=== PATIENT | male | born 1950 | race Two or more races ===

== ENCOUNTER 2016-05-11 11:57 | Emergency (ER) | payer MEDICAID ==
[~2016-05-11] VITALS: Ht 172.7 cm; Wt 106.6 kg
[~2016-05-11 11:57] MED LIST: ATEN100T; CITA-30; FLUT50SP13; NITR0.4S31; SIMV-13
[2016-05-11 12:22] LABS: Basophils # (auto) 0 uL; Basophils % (auto) 0.3 % (0.0-2.0); DEFINITIVE VIEW TRANSMISSION; Eosinophils # (auto) 0.2 uL; Eosinophils % (auto) 2.6 % (0.0-7.0); Hematocrit 52.1 % (41.0-53.0); Hemoglobin 16.7 g/dL (13.5-17.5); Lymphocytes # (auto) 2.1 uL; Lymphocytes % (auto) 23.1 % (10.0-50.0); Mean Corpuscular Hgb Conc. 32.1 g/dL (32.0-36.0); Mean Platelet Volume 10.1 fL (7.4-10.4); Monocytes % (auto) 10.8 % (0.0-12.0); Neutrophils # (auto) 5.7 uL; Neutrophils % (auto) 63.2 % (37.0-80.0); Platelet Count (auto) 160 10^3/uL (140-450); Red Cell Distribution Width 15.4 % (11.6-16.0)
[2016-05-11 12:47] LABS: Albumin 3.7 g/dL (3.4-5.0); BUN/Creatinine Ratio 11.4; Bilirubin, Total 0.6 mg/dL (0.2-1.0); Calcium 8.5 mg/dL (8.5-10.1); Magnesium 2.1 mg/dL (1.6-2.6); Potassium 3.8 mmol/L (3.5-5.1); Total Protein 7.4 g/dL (6.4-8.2)
[2016-05-11 18:18] VITALS: BP 154/89
== END 2016-05-11 18:22 | disposition home or self-care (01) ==
LOC: ER 12:02
DX: R07.89 Other chest pain (principal); E11.9 Type 2 diabetes mellitus without complications; E78.5 Hyperlipidemia, unspecified; I10 Essential (primary) hypertension; I25.10 Atherosclerotic heart disease of native coronary artery without angina pectoris; Z98.61 Coronary angioplasty status; Z79.899 Other long term (current) drug therapy
CPT/HCPCS: 36415; 80053; 83735; 84484; 85025; 93005; 94761

== ENCOUNTER → 2016-08-23 | Emergency (ER) | payer MEDICAID | END | disposition left against medical advice (07) | LOC: ER 21:12 | DX: R39.89 Other symptoms and signs involving the genitourinary system (principal); Z53.21 Procedure and treatment not carried out due to patient leaving prior to being seen by health care provider ==

== ENCOUNTER → 2019-08-24 | Emergency (ER) | payer MEDICAID, OTHER ==
[~2019-08-24] VITALS: Ht 172.7 cm; Wt 106.6 kg
[~2019-08-24] MED LIST changes: +HYDROmorphone HCL 2 MG/ML VL IV ONE; +KETOROLAC TROMETH 15 mg/ml 1ML VL IV ONE; +KETOROLAC TROMETH 30 MG/ML 1ML VIAL ONE; +ONDANSETRON HCL 4 MG/2 ML VIAL IV ONE; +SODIUM CHLORIDE 0.9% 1,000 ML IV ONE
[2019-08-24 20:08] VITALS: BP 162/80
[2019-08-24 20:17] LABS: Basophils # (auto) 0.1 10 ^3/uL (0-0.2); Basophils % (auto) 0.6 % (0.0-2.0); Eosinophils # (auto) 0.3 10 ^3/uL (0-0.8); Monocytes # (auto) 1.3 10 ^3/uL (0-1.3); Nucleated Red Blood Cells % 0.1 %
[2019-08-24 20:19] LABS: Eosinophils % (auto) 2.4 % (0.0-7.0); Hematocrit 51.3 % (41.0-53.0); Lymphocytes # (auto) 2.5 10 ^3/uL (0.4-5.4); Lymphocytes % (auto) 21.3 % (10.0-50.0); Mean Corpuscular Hemoglobin 26.7 pg (28.0-32.0); Mean Corpuscular Hgb Conc. 33.1 g/dL (32.0-36.0); Mean Corpuscular Volume 80.8 fL (80.0-100.0); Monocytes % (auto) 10.8 % (0.0-12.0); Neutrophils # (auto) 7.7 10 ^3/uL (1.6-8.6); Neutrophils % (auto) 64.9 % (37.0-80.0); Platelet Count (auto) 153 10^3/uL (140-450); Red Blood Cells 6.35 10^6/uL (4.5-5.90); Red Cell Distribution Width 14.8 % (11.8-14.3); White Blood Cell 11.9 10^3/uL (4.4-10.8)
[2019-08-24 20:30] LABS: Albumin 4.2 g/dL (3.4-5.0); BUN/Creatinine Ratio 13.7; Calcium 8.9 mg/dL (8.5-10.1); Potassium 3.4 mmol/L (3.5-5.1)
[2019-08-24 20:33] LABS: Bilirubin, Total 0.6 mg/dL (0.2-1.0); Total Protein 7.7 g/dL (6.4-8.2)
== END | disposition home or self-care (01) ==
LOC: ER 19:03
DX: N20.0 Calculus of kidney (principal); I25.10 Atherosclerotic heart disease of native coronary artery without angina pectoris; E11.9 Type 2 diabetes mellitus without complications; E78.5 Hyperlipidemia, unspecified; I10 Essential (primary) hypertension
CPT/HCPCS: 36415; 71045; 74176; 80053; 82150; 83690; 85025; 93005; 96374; 96375; 99285; J1170; J1885; J2405

== ENCOUNTER 2019-08-29 12:15 | Inpatient (IN) | payer OTHER ==
[~2019-08-29] VITALS: Ht 172.7 cm; Wt 108.3 kg
[~2019-08-29 12:15] MED LIST changes: -HYDROmorphone HCL 2 MG/ML VL IV ONE; -KETOROLAC TROMETH 15 mg/ml 1ML VL IV ONE; -KETOROLAC TROMETH 30 MG/ML 1ML VIAL ONE; -ONDANSETRON HCL 4 MG/2 ML VIAL IV ONE; -SODIUM CHLORIDE 0.9% 1,000 ML IV ONE
[2019-08-29] MEDS ORDERED: SODIUM CHLORIDE 0.9% 1,000 ML IV ONE ×2 (12:56)
[2019-08-29 13:24] LABS: Hematocrit 48.5 % (41.0-53.0)
[2019-08-29 13:26] LABS: Hemoglobin 15.8 g/dL (13.5-17.5); Mean Corpuscular Hemoglobin 26.3 pg (28.0-32.0); Mean Corpuscular Hgb Conc. 32.7 g/dL (32.0-36.0); Mean Corpuscular Volume 80.4 fL (80.0-100.0); Platelet Count (auto) 154 10^3/uL (140-450); Red Blood Cells 6.03 10^6/uL (4.5-5.90); Red Cell Distribution Width 14.6 % (11.8-14.3); White Blood Cell 10.2 10^3/uL (4.4-10.8)
[2019-08-29] MEDS ORDERED: TAMSULOSIN HYDROCHLORIDE 0.4 MG CAP PO ONE (13:45)
[2019-08-29] MEDS ORDERED: MORPHINE SULF INJ 2 MG/ML SYRINGE 1ML IV ONE (13:45)
[2019-08-29] MEDS ORDERED: ONDANSETRON HCL 4 MG/2 ML VIAL IV ONE (13:45)
[2019-08-29 13:46] LABS: Albumin 3.1 g/dL (3.4-5.0); Anion Gap 9 (5-15); Basophils % (manual) 0 (0.0-2.0); Blast Cells 0; Blood Urea Nitrogen 18 mg/dL (7-18); Calcium 8.5 mg/dL (8.5-10.1); Carbon Dioxide 24 mmol/L (21-32); Chloride 104 mmol/L (98-107); Glucose 155 mg/dL (74-106); Potassium 3.5 mmol/L (3.5-5.1); Promyelocytes % 0; Reactive Lymphocytes 0; Sodium 137 mmol/L (136-145)
[2019-08-29 13:47] LABS: Urine Bacteria NONE SEEN /hpf (None Seen); Urine Blood TRACE /uL (Negative); Urine Mucus FEW (None Seen); Urine Specific Gravity 1.024 (1.001-1.035); Urine WBC 2 /hpf (0 - 3)
[2019-08-29 13:52] LABS: Alanine Aminotransferase 278 U/L (16-61); Alkaline Phosphatase 119 U/L (45-117); Aspartate Aminotransferase 139 U/L (15-37); BUN/Creatinine Ratio 19.6; Bilirubin, Total 2.1 mg/dL (0.2-1.0); GFR African American 106 mL/min; GFR Non-African American 87 mL/min; Total Protein 7.6 g/dL (6.4-8.2)
[2019-08-29 13:53] LABS: Band Neutrophils % (manual) 4; Eosinophils % (manual) 1 (0-7); Lymphocytes % (manual) 8 (10.0-50.0); Metamyelocytes % 1; Monocytes % (manual) 9 (0-12); Myelocytes % 1
[2019-08-29] MEDS ORDERED: SODIUM CHLORIDE 0.9% 1,000 ML IV SCH ×3 (14:15→23:15)
[2019-08-29] MEDS ORDERED: NITROGLYCERIN 0.4 MG SL TAB SL PRN (14:15)
[2019-08-29] MEDS ORDERED: DEXTROSE (50%) 50ML SYRG IV PRN (14:15)
[2019-08-29] MEDS ORDERED: HYDROcodone-ACET 5/325MG TAB PO PRN (14:15)
[2019-08-29] MEDS ORDERED: MORPHINE SULF INJ 2 MG/ML SYRINGE 1ML IV PRN (14:15)
[2019-08-29] MEDS ORDERED: PIPERACILLIN-TAZOB 3.375GM 100 ML IV ONE (14:30)
[2019-08-29 14:41] LABS: Amylase 58 U/L (25-115); Lipase 443 U/L (73-393)
[2019-08-29 14:51] LABS: INR 1.22 (0.9-1.15)
--- NOTE | 2019-08-29 15:28 | NUR ---
MS admit from ER ANDREW,FREDA admitted to tele/MS after SBAR received from ER nurse, Marisela. Patient oriented to Kimberly elizabeth RN, unit, room, bed, and unit policies regarding patient care and visiting hours. Patient weighed by bedscale and encouraged to call if they need something. All questions and concerns addressed, patient verbalized understanding. Addendum: 08/29/19 at 1541 by Kimberly Pryor RN This is a MS patient.
[2019-08-29 15:51] VITALS: BP 155/79
[2019-08-29 16:00] VITALS: BP 155/79
[2019-08-29] MEDS: InsuLIN REG 1unit/0.01ml Soln (100units/ml) SC SCH ×2 (17:00→21:45)
[2019-08-29] MEDS: ACCU-CHEK COMFORT CURVE STRIP VI SCH ×2 (17:07→21:23)
[2019-08-29] MEDS: ONDANSETRON HCL 4 MG/2 ML VIAL IV PRN (18:21)
--- NOTE | 2019-08-29 20:00 | NUR ---
Consent not signed need to explain by the surgeon still.
--- NOTE | 2019-08-29 20:00 | NUR ---
Opening Shift Note Assumed care of patient, awake and alert. No S/S of distress/SOB or pain. Instructed on POC and to call for assist PRN, will continue to monitor for changes Q1hr and PRN.
[2019-08-29] MEDS ORDERED: GLIP2.5T28 PO (20:31)
[2019-08-29] MEDS ORDERED: ATOR10TA52 PO (20:31)
[2019-08-29] MEDS ORDERED: HYDR25TA4 PO (20:31)
[2019-08-29] MEDS ORDERED: LISI-646 PO (20:31)
[2019-08-29] MEDS ORDERED: ATEN100T PO (20:31)
[2019-08-29] MEDS ORDERED: LORA0.5T12 PO (20:31)
[2019-08-29] MEDS ORDERED: LEVO750T64 PO (20:31)
[2019-08-29 21:00] VITALS: BP 155/79
--- NOTE | 2019-08-29 22:07 | NUR ---
Respiratory note: PT SEEN FOR CPAP ORDER AT THIS TIME. PT STATED THAT HE WEARS ONE AT HOME, BUT HE IS CURRENTLY HAVING BAD HICCUPS AND IS ALSO FEELING NAUSEOUS AT THIS TIME. DID NOT PLACE THE PT ON CPAP. MACHINE LEFT IN THE ROOM SO THAT PT CAN TRY AND WEAR IT TOMORROW NIGHT.
--- NOTE | 2019-08-29 23:39 | NUR ---
Called the nursing operation shift supervisor to override the i.v.f. of N.S.0.9% with 20meq pot. per liter of N.S.as per outside pharmacy.
[2019-08-29] MEDS ORDERED: SOD CHL 0.9%/ KCL 20MEQ 1,000 ML IV ONE (23:47)
[2019-08-29] MEDS: POTASSIUM CHLORIDE 20 MEQ in SODIUM CHLORIDE 0.9% 1,000 ML IV SCH (23:48)
[2019-08-30] MEDS: ONDANSETRON HCL 4 MG/2 ML VIAL IV PRN ×3 (00:51→22:00)
[2019-08-30 03:40] VITALS: BP 155/79
[2019-08-30 04:30] VITALS: BP 153/76
[2019-08-30 05:29] LABS: Hematocrit 44.2 % (41.0-53.0); Hemoglobin 14.6 g/dL (13.5-17.5); Mean Corpuscular Hemoglobin 26.5 pg (28.0-32.0); Mean Corpuscular Hgb Conc. 33.1 g/dL (32.0-36.0); Mean Corpuscular Volume 79.9 fL (80.0-100.0); Platelet Count (auto) 157 10^3/uL (140-450); Red Blood Cells 5.53 10^6/uL (4.5-5.90); Red Cell Distribution Width 15.3 % (11.8-14.3); White Blood Cell 11.2 10^3/uL (4.4-10.8)
[2019-08-30 05:44] LABS: Potassium 4.1 mmol/L (3.5-5.1)
[2019-08-30 05:51] LABS: Albumin 2.9 g/dL (3.4-5.0); BUN/Creatinine Ratio 18.9; Bilirubin, Total 1.7 mg/dL (0.2-1.0); Calcium 7.8 mg/dL (8.5-10.1); Total Protein 6.8 g/dL (6.4-8.2)
[2019-08-30 06:00] LABS: Band Neutrophils % (manual) 0; Basophils % (manual) 0 (0.0-2.0); Blast Cells 0; Myelocytes % 0; Promyelocytes % 0; Reactive Lymphocytes 0
--- NOTE | 2019-08-30 06:00 | NUR ---
Respiratory note: WALKED IN ROOM, PATIENT WAS NOT WEARING CPAP. NO RESP DISTRESS NOTED, HR 58, RR 18, SPO2 96% ON ROOM AIR. PATIENT PLANNING ON WEARING CPAP TONIGHT.
[2019-08-30] MEDS: InsuLIN REG 1unit/0.01ml Soln (100units/ml) SC SCH ×4 (06:14→18:07)
[2019-08-30] MEDS: ACCU-CHEK COMFORT CURVE STRIP VI SCH ×4 (06:15→21:59)
[2019-08-30 07:06] LABS: Eosinophils % (manual) 4 (0-7); Lymphocytes % (manual) 13 (10.0-50.0); Metamyelocytes % 1; Monocytes % (manual) 11 (0-12)
--- NOTE | 2019-08-30 07:15 | NUR ---
Report given to Kristin Velez, patient is resting no respiratory distress.
--- NOTE | 2019-08-30 07:47 | NUR ---
OPENING SHIFT NOTE: PATIENT RESTING IN BED, A/OX4. RESPIRATIONS EVEN AND UNLABORED. PATIENT UPDATED ON PLAN OF CARE, NPO FOR SURGERY TODAY WITH MD HENDERSON. NOC ELIZABETH HANEY TOOK POM TO PHARMACY WRISTBAND APPLIED TO PATIENT. BED IN LOWEST LOCKED POSITION, CALL LIGHT WITHIN REACH WILL CONTINUE TO MONITOR.
[2019-08-30 09:00] VITALS: BP 161/84
[2019-08-30] MEDS: LISINOPRIL 20 MG TAB PO SCH (09:14)
[2019-08-30] MEDS: POTASSIUM CHLORIDE 20 MEQ in SODIUM CHLORIDE 0.9% 1,000 ML IV SCH (10:17)
[2019-08-30] MEDS ORDERED: MORPHINE SULF INJ 2 MG/ML SYRINGE 1ML ONE (11:03)
[2019-08-30] MEDS ORDERED: MORPHINE SULF INJ 2 MG/ML SYRINGE 1ML IM ONE (11:30)
[2019-08-30] MEDS ORDERED: ceFAZolin 1GM/50ML 50 ML IV ONE (13:28)
--- NOTE | 2019-08-30 13:53 | NUR ---
PATIENT TAKEN DOWN TO OR.
[2019-08-30] MEDS ORDERED: SUCCINYLCHOLINE CHLORIDE 20 MG/ML 10ML VIAL IV ONE (15:04)
[2019-08-30] MEDS ORDERED: GLYCOPYRROLATE 0.2 MG/ML 1ML VIAL IV ONE (15:05)
[2019-08-30] MEDS ORDERED: NEOSTIGMINE 1 MG/ML INJ (10mg/10ML VIAL) IV ONE (15:05)
[2019-08-30] MEDS ORDERED: MEPERIDINE HCL (25 MG/ML) 1ML VIAL ONE (15:13)
[2019-08-30] MEDS ORDERED: fentaNYL CITRATE 100 MCG/2 ML VL ONE (15:13)
[2019-08-30] MEDS ORDERED: MIDAZOLAM HCL 1MG/1ML-2 ML VIAL ONE (15:14)
[2019-08-30] MEDS ORDERED: ETOMIDATE (2MG/ML) 20ML VIAL IV ONE (15:40)
[2019-08-30] MEDS ORDERED: DexAMETHasone SOD PHOS 10MG/1ML VIAL INJ ONE (15:40)
[2019-08-30] MEDS: POVIDONE IODINE 10 % TOPICAL OINT 30GM TOP ONE ×2 (16:13→17:56)
[2019-08-30] MEDS ORDERED: ePHEDrine SULFATE 50 MG/ML AMP IV PRN (16:30)
[2019-08-30] MEDS ORDERED: LABETALOL HCL 5 MG/ML 4ML SYRINGE IV PRN (16:30)
[2019-08-30] MEDS ORDERED: MORPHINE SULFATE 4 MG/ML SYR/VIAL IV PRN (16:30)
[2019-08-30] MEDS ORDERED: MIDAZOLAM HCL 1MG/1ML-2 ML VIAL IV PRN (16:30)
[2019-08-30] MEDS ORDERED: ONDANSETRON HCL 4 MG/2 ML VIAL IV PRN (16:30)
[2019-08-30] MEDS ORDERED: HYDROmorphone HCL 2 MG/ML VL IV PRN (16:30)
--- NOTE | 2019-08-30 17:30 | NUR ---
PATIENT BACK FROM OR VS STABLE DRESSINGS TO MID ABDOMEN CDI.
[2019-08-30] MEDS ORDERED: ASPI-498 OR (18:23)
[2019-08-30] MEDS ORDERED: MULTTAB61 PO (18:24)
[2019-08-30] MEDS ORDERED: ACET-1304 PO (18:25)
--- NOTE | 2019-08-30 19:20 | NUR ---
Opening Shift Note Assumed care of patient. Patient is awake and alert. No S/S of distress/SOB or pain. Instructed on POC and to call for assist PRN, will continue to monitor for changes Q1hr and PRN. Bed locked in lowest position and bed rails up x2. SCDS's in place on intermittent on bilateral lower extremities. Call light within reach.
--- NOTE | 2019-08-30 19:22 | NUR ---
Care endorsed to Eric JOHNSON.
[2019-08-30] MEDS: SOD CHL 0.9%/ KCL 20MEQ 1,000 ML IV SCH (19:45)
--- NOTE | 2019-08-30 21:11 | NUR ---
Paged Hospitalist for elevated B/P and temperature. Awaiting call back. Will continue to monitor for changes.
--- NOTE | 2019-08-30 21:40 | NUR ---
Hospitalist called back and new orders given. New orders will be carried out. Will continue to monitor for changes Q1H and PRN.
[2019-08-30] MEDS ORDERED: ACETAMINOPHEN 325 MG TAB PO PRN (21:45)
[2019-08-30] MEDS ORDERED: HCTZ 25 MG TAB PO ONE (21:45)
[2019-08-30 22:00] VITALS: BP 155/80
[2019-08-30] MEDS: MORPHINE SULF INJ 2 MG/ML SYRINGE 1ML IV PRN (22:00)
[2019-08-31 05:00] VITALS: BP 155/74
[2019-08-31] MEDS: SOD CHL 0.9%/ KCL 20MEQ 1,000 ML IV SCH ×2 (05:46→15:45)
[2019-08-31] MEDS: ACCU-CHEK COMFORT CURVE STRIP VI SCH ×2 (06:49→12:03)
[2019-08-31] MEDS: InsuLIN REG 1unit/0.01ml Soln (100units/ml) SC SCH ×2 (06:50→12:12)
--- NOTE | 2019-08-31 07:12 | NUR ---
Respiratory note: PT FOUND OFF CPAP UNIT. ASSESSED PT HR 72, RR 18, POX 94% ON RA, BS ARE CLR. NO SOB OR DISTRESS NOTED.
--- NOTE | 2019-08-31 07:14 | NUR ---
130ml of sanguinous drainage from VINITA drain and 900ml of urine output for entire shift. Will endorse to day shift, ELIZABETH.
--- NOTE | 2019-08-31 08:15 | NUR ---
OPENING SHIFT NOTE: PATIENT AWAKE IN BED. A.OX4 RESPIRATIONS EVEN AND UNLABORED. PATIENT REQUESTING TO GET OUT OF BED. THIS RN ASSISTED. PATIENT ABLE TO AMBULATE WITH STEADY GAIT. BOWEL SOUNDS ACTIVE. PATIENT TOLERATING CLEAR LIQUID. PATIENT STILL REPORTING HICCUPS AND REQUESTING ANTACID. WILL INFORM MD. PATIENT BACK IN BED. RESTING COMFORTABLY, CALL LIGHT WITHIN REACH, WILL CONTINUE TO MONITOR.
[2019-08-31 08:29] VITALS: BP 153/81
--- NOTE | 2019-08-31 08:29 | NUR ---
CALL FROM MD Thom LEHMAN: ORDERS RECEIVED. PATIENT TO RESUME HOME MEDS, AND START ON PPI/STOOL SOFTENER. ADVANCE DIET TOLERATED, AND TO NOTIFY MD IF ANY D/C UPDATES ARE GIVEN FROM SURGEON DR. HENDERSON
[2019-08-31] MEDS ORDERED: LORazepam 0.5 MG TAB PO PRN (08:30)
[2019-08-31] MEDS ORDERED: SENNA 8.6 MG TAB PO ONE (08:30)
[2019-08-31] MEDS: LISINOPRIL 20 MG TAB PO SCH (09:49)
[2019-08-31] MEDS: MORPHINE SULF INJ 2 MG/ML SYRINGE 1ML IV PRN (09:53)
[2019-08-31] MEDS ORDERED: ASPirin 81 mg TAB PO SCH (10:00)
[2019-08-31] MEDS ORDERED: HCTZ 25 MG TAB PO SCH (10:00)
[2019-08-31] MEDS ORDERED: PANTOPRAZOLE 40 MG TAB PO SCH (10:00)
[2019-08-31] MEDS ORDERED: ATENOLOL 50 MG TAB PO SCH (10:00)
[2019-08-31] MEDS ORDERED: ALUM & MAG HYDROX-SIMETH LIQ(MAALOX) 30 ML PO ONE (13:15)
[2019-08-31 13:27] VITALS: BP 112/76
[2019-08-31 15:54] VITALS: BP 153/81
--- NOTE | 2019-08-31 17:11 | NUR ---
DISCHARGE: PATIENT DISCHARGED. ALL EDUCATION MATERIALS GIVEN TO THE PATIENT. EDUCATED ON VINITA DRAIN AND INCISIONAL CARE. PATIENT VERBALIZED UNDERSTANDING. IV DISCONTINUED, MANUAL PRESSURE APPLIED. PATIENT TAKEN DOWN TO PRIVATE AUTO WITHOUT INCIDENCE AND WITH ALL BELONGINGS.
[2019-08-31] MEDS ORDERED: ATORVASTATIN 20 MG TAB PO SCH (22:00)
== END 2019-08-31 17:40 | disposition home or self-care (01) | DRG 419 ==
LOC: ER 12:15 → OVERFLOW 12:16 → CENTRAL 15:40
PROVIDERS: ADMIT Internal Medicine; ATTEND Internal Medicine
PROC: 0FT44ZZ Resection of Gallbladder, Percutaneous Endoscopic Approach (ICD-10-PCS; principal; 2019-08-30 15:15)
DX: K80.00 Calculus of gallbladder with acute cholecystitis without obstruction (principal); K82.A1 Gangrene of gallbladder in cholecystitis; N20.0 Calculus of kidney; E86.0 Dehydration; I10 Essential (primary) hypertension; E11.9 Type 2 diabetes mellitus without complications; E66.01 Morbid (severe) obesity due to excess calories; I25.10 Atherosclerotic heart disease of native coronary artery without angina pectoris; Z87.442 Personal history of urinary calculi
CPT/HCPCS: 36415; 71046; 71250; 74176; 74181; 76705; 78226; 80053; 81001; 82150; 82247; 82962; 83605; 83690; 83880; 84484; 85007; 85027; 85610; 85730; 86850; 86900; 86901; 87040; 87081; 94660; 96361; 96365; 96375; G0378; J0330; J0690; J1100; J1815; J2250; J2405; J2543; J3480

== ENCOUNTER 2021-02-28 08:48 | Emergency (ER) | payer OTHER ==
[~2021-02-28] VITALS: Ht 172.7 cm; Wt 104.3 kg
[~2021-02-28 08:48] MED LIST changes: +ACET-1304 PO; +ASPI-498 OR; -ATEN100T; +ATEN100T PO; +ATOR10TA52 PO; -CITA-30; -FLUT50SP13; +GLIP2.5T28 PO; +HYDR25TA4 PO; +LISI20TA28 PO; +LORA0.5T20 PO; +MULT-1018 PO; -NITR0.4S31; -SIMV-13
[2021-02-28] MEDS ORDERED: FLUORESCEIN SOD OPTH TEST STRIP OP ONE (09:15)
[2021-02-28 09:49] VITALS: BP 141/85
== END 2021-02-28 10:04 | disposition home or self-care (01) ==
LOC: ER 08:48
DX: T15.02XA Foreign body in cornea, left eye, initial encounter (principal); I10 Essential (primary) hypertension; I25.10 Atherosclerotic heart disease of native coronary artery without angina pectoris; E11.9 Type 2 diabetes mellitus without complications; E78.5 Hyperlipidemia, unspecified; Z79.82 Long term (current) use of aspirin; Z79.899 Other long term (current) drug therapy; X58.XXXA Exposure to other specified factors, initial encounter; Y93.89 Activity, other specified; Y92.89 Other specified places as the place of occurrence of the external cause; Y99.8 Other external cause status
CPT/HCPCS: 65222

== ENCOUNTER 2022-05-26 12:16 | Emergency (ER) | payer OTHER ==
[~2022-05-26] VITALS: Ht 172.7 cm; Wt 104.2 kg
[2022-05-26] MEDS ORDERED: ASPirin 325 MG TAB PO ONE (12:30)
[2022-05-26 13:08] LABS: Basophils # (auto) 0.1 10 ^3/uL (0-0.2); Basophils % (auto) 0.6 % (0.0-2.0); Eosinophils # (auto) 0.2 10 ^3/uL (0-0.8); Eosinophils % (auto) 1.9 % (0.0-7.0); Hematocrit 51.4 % (41.0-53.0); Hemoglobin 16.6 g/dL (13.5-17.5); Lymphocytes # (auto) 2.1 10 ^3/uL (0.4-5.4); Lymphocytes % (auto) 23.7 % (10.0-50.0); Mean Corpuscular Hemoglobin 26.3 pg (28.0-32.0); Mean Corpuscular Hgb Conc. 32.3 g/dL (32.0-36.0); Mean Corpuscular Volume 81.5 fL (80.0-100.0); Monocytes # (auto) 0.9 10 ^3/uL (0-1.3); Monocytes % (auto) 10.1 % (0.0-12.0); Neutrophils # (auto) 5.6 10 ^3/uL (1.6-8.6); Neutrophils % (auto) 63.7 % (37.0-80.0); Nucleated Red Blood Cells % 0.1 %; Red Blood Cells 6.31 10^6/uL (4.5-5.90); Red Cell Distribution Width 15.3 % (11.8-14.3); White Blood Cell 8.8 10^3/uL (4.4-10.8)
[2022-05-26 13:16] LABS: BUN/Creatinine Ratio 14.1; Calcium 8.9 mg/dL (8.5-10.1); Potassium 4.1 mmol/L (3.5-5.1)
[2022-05-26 13:18] LABS: Bilirubin, Total 0.7 mg/dL (0.2-1.0); Total Protein 6.9 g/dL (6.4-8.2)
[2022-05-26 16:05] VITALS: BP 155/77
== END 2022-05-26 16:07 | disposition home or self-care (01) ==
LOC: ER 12:16
DX: R07.89 Other chest pain (principal); F41.9 Anxiety disorder, unspecified; I10 Essential (primary) hypertension; I25.10 Atherosclerotic heart disease of native coronary artery without angina pectoris; E11.9 Type 2 diabetes mellitus without complications; E78.5 Hyperlipidemia, unspecified; Z79.82 Long term (current) use of aspirin; Z79.899 Other long term (current) drug therapy
CPT/HCPCS: 36415; 80053; 84484; 85025; 93005

== ENCOUNTER 2024-01-02 12:38 | Emergency (ER) | payer OTHER ==
[~2024-01-02] VITALS: Ht 172.7 cm; Wt 94.0 kg
[~2024-01-02 12:38] MED LIST changes: -GLIP2.5T28 PO; +GLIP2.5T9 PO; -LISI20TA28 PO; +LISI20TA56 PO; +LORA-1121 PO; -LORA0.5T20 PO
[2024-01-02 13:47] LABS: Basophils # (auto) 0 10 ^3/uL (0-0.2); Basophils % (auto) 0.5 % (0.0-2.0); Eosinophils # (auto) 0.2 10 ^3/uL (0-0.8); Lymphocytes # (auto) 2.1 10 ^3/uL (0.4-5.4); Monocytes # (auto) 0.9 10 ^3/uL (0-1.3); Neutrophils # (auto) 5.6 10 ^3/uL (1.6-8.6)
[2024-01-02 13:52] LABS: Eosinophils % (auto) 1.9 % (0.0-7.0); Hematocrit 49.5 % (41.0-53.0); Hemoglobin 16.6 g/dL (13.5-17.5); Lymphocytes % (auto) 23.7 % (10.0-50.0); Mean Corpuscular Hemoglobin 27.6 pg (28.0-32.0); Mean Corpuscular Hgb Conc. 33.4 g/dL (32.0-36.0); Mean Corpuscular Volume 82.7 fL (80.0-100.0); Monocytes % (auto) 10.2 % (0.0-12.0); Neutrophils % (auto) 63.7 % (37.0-80.0); Nucleated Red Blood Cells % 0.2 %; Platelet Count (auto) 163 10^3/uL (140-450); Red Blood Cells 5.99 10^6/uL (4.5-5.90); Red Cell Distribution Width 15.5 % (11.8-14.3); White Blood Cell 8.7 10^3/uL (4.4-10.8)
[2024-01-02 13:53] LABS: Anion Gap 8 (5-15); Carbon Dioxide 24 mmol/L (20-30); Chloride 109 mmol/L (98-107); Potassium 3.9 mmol/L (3.5-5.1); Sodium 141 mmol/L (136-145)
[2024-01-02 13:54] LABS: Calcium 9.8 mg/dL (8.7-10.4)
[2024-01-02 13:58] LABS: Glucose 104 mg/dL (74-106)
[2024-01-02 13:59] LABS: BUN/Creatinine Ratio 11.3 (10.0-20.0); Blood Urea Nitrogen 9 mg/dL (9-23)
[2024-01-02] MEDS: NITROGLYCERIN 0.4 MG SL TAB SL ONE (16:31)
[2024-01-02] MEDS: ONDANSETRON HCL 4 MG/2 ML VIAL IM ONE (16:35)
[2024-01-02] MEDS: MORPHINE SULFATE INJ 2 MG/ml SYRG IM ONE (16:35)
[2024-01-02] MEDS: ASPirin 325 MG TAB PO ONE (16:35)
[2024-01-02 16:36] VITALS: BP 142/67; TEMP 97.9
[2024-01-02 16:37] VITALS: PULSE 85; RESP 14; O2SAT 95
[2024-01-02] MEDS: ASPirin 81 mg TAB PO ONE (16:56)
[2024-01-02] MEDS ORDERED: BUSP5TAB51 PO (17:46)
== END 2024-01-02 18:02 | disposition home or self-care (01) ==
LOC: ER 12:38
DX: R07.89 Other chest pain (principal); I10 Essential (primary) hypertension; I25.10 Atherosclerotic heart disease of native coronary artery without angina pectoris; E11.9 Type 2 diabetes mellitus without complications; E78.5 Hyperlipidemia, unspecified; Z98.890 Other specified postprocedural states; Z79.899 Other long term (current) drug therapy
CPT/HCPCS: 36415; 80048; 84484; 85025; 93005

== ENCOUNTER 2024-05-24 08:34 | Emergency (ER) | payer OTHER ==
[~2024-05-24] VITALS: Ht 368.3 cm; Wt 93.3 kg
[~2024-05-24 08:34] MED LIST changes: +BUSP5TAB51 PO
--- NOTE | 2024-05-24 09:34 | ED.PDOC ---
General HPI Comments 74 year old male presents to the ED with chief complaint of testicular pain. Patient reports that he has been experiencing right sided testicular pain with associated blood clots being urinated out for the past 4 days. Patient relays that he had a recent CABG performed in [place] 5 weeks ago. Patient notes he has also been experiencing a rash to his bilateral wrists and feet, feeling very itchy to him but he is not sure if he may be allergic to a medication he is taking. Patient denies any dysuria, inability to void, abdominal pain, dizziness, fever, chills, or N/V/D. Chief Complaint: Testicle Pain Time Seen by MD: 09:29 Primary Care Provider: ERIKA Reviewed notes: Nurses Notes, Medications, Allergies Allergies: Coded Allergies: NO KNOWN ALLERGIES (Unverified , 04/23/10) Home Meds Active Scripts Buspirone Hcl (Buspirone Hcl) 5 Mg Tab, 1 TAB PO BID, #60 TAB 0 Refills Prov:SHARON TRAN DO 01/02/24 Reported Medications Acetaminophen (Tylenol Extra Strength) 500 Mg Tab, 500 MG PO Q4HPRN PRN for PAIN, TAB 08/30/19 Multiple Vitamin (Multivitamins) Tab, 1 TAB PO DAILY, #90 TAB 3 Refills 08/30/19 Aspirin (ASPIRIN 81) 81 Mg Tab, 81 MG OR DAILY, TAB 08/30/19 Atenolol (Atenolol) 100 Mg Tab, 100 MG PO DAILY for 30 Days, MG 08/29/19 Glipizide (Glipizide Er) 2.5 Mg Tab, 2.5 MG PO DAILY for daily with breakfast for 30 Days, MG 08/29/19 Lorazepam (ATIVAN TABLET) 0.5 Mg Tb, 1 TAB PO DAILY, #30 TAB 08/29/19 Lisinopril (Lisinopril) 20 Mg Tab, 20 MG PO DAILY for 30 Days, MG 08/29/19 Hydrochlorothiazide (Hydrochlorothiazide) 25 Mg Tab, 25 MG PO DAILY for 30 Days, MG 08/29/19 Atorvastatin Calcium (ATORVASTATIN CALCIUM) 10 Mg Tab, 10 MG PO DAILY, TAB 08/29/19 Information Source: Patient Mode of Arrival: Ambulatory Severity: Moderate Inability to void: None Timing: Days Duration: Since onset Prehospital treatment: None Onset: Spontaneous Symptoms: Hematuria History of: Recent post-op Location: None Location male: R Scrotum Penile discharge: None Modifying factors: None associated signs and symptoms: Hematuria Past Medical History PAST MEDICAL HISTORY: CAD, DM, High Lipids, HTN Surgical History: CABG, PTCA Family History Family History: Unknown Social History Smoker: Non-Smoker Alcohol: Occasionally Drugs: Denies Drug Use Lives In: Home Constitutional: denies: chills, diaphoresis, fatigue, fever, malaise, sweats, weakness, others EENTM: denies: blurred vision, double vision, ear bleeding, ear discharge, ear drainage, ear pain, ear ringing, eye pain, eye redness, hearing loss, mouth pain, mouth swelling, nasal discharge, nose bleeding, nose congestion, nose pain, photophobia, tearing, throat pain, throat swelling, voice changes, others Respiratory: denies: cough, hemoptysis, orthopnea, SOB at rest, shortness of breath, SOB with excertion, stridor, wheezing, others Cardiovascular: denies: chest pain, dizzy spells, diaphoresis, Dyspnea on exertion, edema, irregular heart beat, left arm pain, lightheadedness, palpitations, PND, syncope, others Gastrointestinal: denies: abdomen distended, abdominal pain, blood streaked bowels, constipated, diarrhea, dysphagia, difficulty swallowing, hematemesis, melena, nausea, poor appetite, poor fluid intake, rectal bleeding, rectal pain, vomiting, others Genitourinary: reports: hematuria, testicle pain; denies: burning, dysuria, flank pain, frequency, incontinence, penile discharge, penile sore, pain, testicle swelling, urgency, others Neurological: denies: dizziness, fainting, headache, left sided numbness, left sided weakness, numbness, paresthesia, pre-existing deficit, right sided numbness, right sided weakness, seizure, speech problems, tingling, tremors, weakness, others Musculoskeletal: denies: back pain, gout, joint pain, joint swelling, muscle pain, muscle stiffness, neck pain, others Integumetry: reports: rash; denies: bruises, change in color, change in hair/nails, dryness, laceration, lesions, lumps, wounds, others Allergic/Immunocompromised: denies: Difficulty Healing, Frequent Infections, Hives, Itching, others Hematologic/Lymphatic: denies: anemia, blood clots, easy bleeding, easy bruising, swollen glands, others Endocrine: denies: excessive hunger, excessive sweating, excessive thirst, excessive urination, flushing, intolerance to cold, intolerance to heat, unexplained weight gain, unexplained weight loss, others Psychiatric: denies: anxiety, bipolar disorder, depression, hopeless, panic disorder, schizophrenia, sleepless, suicidal, others All Other Systems: Reviewed and Negative Physical Exam General Appearance: Moderate Distress, Normal HEENT: Normal ENT Inspection, PERRL/EOMI Neck: Full Range of Motion, Non-Tender, Normal, Normal Inspection Respiratory: Chest Non-Tender, Lungs Clear, No Accessory Muscle Use, No Respiratory Distress, Normal Breath Sounds Cardiovascular: No Edema, No JVD, No Murmur, No Gallop, Normal Peripheral Pulses, Regular Rate/Rhythm Breast Exam: Deferred Gastrointestinal: No Organomegaly, Non Tender, No Pulsatile Mass, Normal Bowel Sounds, Soft Genitalia: Deferred Pelvic: Deferred Rectal: Deferred Extremities: No calf tenderness, Normal capillary refill, Normal inspection, Normal range of motion, Non-tender, No pedal edema Musculoskeletal : Apperance: Normal Neurologic: Alert, seam feller II-XII nml as Tested, No Motor Deficits, Normal Affect, Normal Mood, No Sensory Deficits Cerebellar Function: Normal Reflexes: Normal Skin: Dry, Normal Color, Warm Peripheral Pulses: 3+ Radial (R), 3+ Radial (L) Lymphatic: No Adenopathy Was a procedure done? Was a procedure done?: No Differential Diagnosis Kidney stone (Female): Musculoskeletal pain, Urinary obstruction, Urolithiasis Kidney stone (Male): N/A Penile/Scrotal: Epidiymitis X-Ray, Labs, Meds, VS Vital Signs Date Time Temp Pulse Resp B/P (MAP) Pulse Ox O2 Delivery O2 Flow Rate FiO2 05/24/24 08:49 98.3 89 19 143/84 (103) 96 Lab Test 05/24/24 09:57 Range/Units White Blood Count 9.0 4.4-10.8 10^3/uL Red Blood Count 5.37 4.5-5.90 10^6/uL Hemoglobin 14.1 13.5-17.5 g/dL Hematocrit 43.6 41.0-53.0 % Mean Corpuscular Volume 81.1 80.0-100.0 fL Mean Corpuscular Hemoglobin 26.3 L 28.0-32.0 pg Mean Corpuscular Hemoglobin Concent 32.4 32.0-36.0 g/dL Red Cell Distribution Width 15.3 H 11.8-14.3 % Platelet Count 192 140-450 10^3/uL Mean Platelet Volume 9.9 6.9-10.8 fL Neutrophils (%) (Auto) 79.6 37.0-80.0 % Lymphocytes (%) (Auto) 10.3 10.0-50.0 % Monocytes (%) (Auto) 8.0 0.0-12.0 % Eosinophils (%) (Auto) 1.7 0.0-7.0 % Basophils (%) (Auto) 0.4 0.0-2.0 % Neutrophils # (Auto) 7.2 1.6-8.6 10 ^3/uL Lymphocytes # (Auto) 0.9 0.4-5.4 10 ^3/uL Monocytes # (Auto) 0.7 0-1.3 10 ^3/uL Eosinophils # (Auto) 0.2 0-0.8 10 ^3/uL Basophils # (Auto) 0 0-0.2 10 ^3/uL Nucleated Red Blood Cells 0.0 % Sodium Level 141 136-145 mmol/L Potassium Level 3.8 3.5-5.1 mmol/L Chloride Level 106 98-107 mmol/L Carbon Dioxide Level 27 20-31 mmol/L Anion Gap 8 5-15 Blood Urea Nitrogen 7 L 9-23 mg/dL Creatinine 0.85 0.700-1.30 mg/dL Glomerular Filtration Rate Calc 92 >90 mL/min BUN/Creatinine Ratio 8.2 L 10.0-20.0 Serum Glucose 115 H 74-106 mg/dL Calcium Level 10.0 8.7-10.4 mg/dL Patient alert. Complaining of right testicular discomfort. Vitals stable. Answering all questions. Ultrasound of the testicle reveals hydrocele. Does have mild redness of base of the palm. No sign of any allergic reaction. WBC within normal limits. Hemoglobin within normal limits. Possible early epididymitis. Was given prescription of Keflex antibiotic. Explained to the patient. Was told to follow up with his primary care physician. Was told to come back if there is any problem. Time of 1ST Reevaluation: 10:29 Reevaluation 1ST: Improved Patient Education/Counseling: Diagnosis, Treatment Family Education/Counseling: No Family Present Additional Information I reviewed the following notes from patient's past medical encounters: 01/02/24 for chest pain The following tests were ordered, and results were reviewed by me: Testicular US, UA, CBC, BMP Additional Information was gathered from interviewing the following independent historians: None I reviewed and agreed with the following test results read by other providers: Testicular US I discussed treatment and results with medical personnel. Departure 1 Departure Time of Disposition: 11:35 Impression: Primary Impression: Hydrocele Qualified Codes: N43.1 - Infected hydrocele Disposition: HOME / SELF CARE / HOMELESS Condition: Good e-Prescriptions Cephalexin (KEFLEX CAPSULE) 250 Mg Cp 250 MG PO QID for 5 Days, #20 BOTTLE Prov: JOSIE RAUSCH MD 05/24/24 Discharged With: Self Critical Care Note Critical Care Time?: No Stability Stability form required: No Heart Score Heart Score: Heart Score Response (Comments) Value History N/A 0 EKG N/A 0 Age N/A 0 Risk Factors N/A 0 Troponin N/A 0 Total 0 I personally scribed for JOSIE RAUSCH MD ([email or web address]) on 05/24/24 at 09:34. Electronically submitted by Kashif Cotter ([email or web address]). JOSIE RAUSCH MD May 24, 2024 09:34
[2024-05-24 10:33] LABS: Basophils # (auto) 0 10 ^3/uL (0-0.2); Basophils % (auto) 0.4 % (0.0-2.0); Eosinophils # (auto) 0.2 10 ^3/uL (0-0.8); Lymphocytes # (auto) 0.9 10 ^3/uL (0.4-5.4); Monocytes # (auto) 0.7 10 ^3/uL (0-1.3); Neutrophils # (auto) 7.2 10 ^3/uL (1.6-8.6); Red Blood Cells 5.37 10^6/uL (4.5-5.90)
[2024-05-24 10:36] LABS: Anion Gap 8 (5-15); Carbon Dioxide 27 mmol/L (20-31); Chloride 106 mmol/L (98-107); Eosinophils % (auto) 1.7 % (0.0-7.0); Hematocrit 43.6 % (41.0-53.0); Hemoglobin 14.1 g/dL (13.5-17.5); Lymphocytes % (auto) 10.3 % (10.0-50.0); Mean Corpuscular Hemoglobin 26.3 pg (28.0-32.0); Mean Corpuscular Hgb Conc. 32.4 g/dL (32.0-36.0); Mean Corpuscular Volume 81.1 fL (80.0-100.0); Neutrophils % (auto) 79.6 % (37.0-80.0); Platelet Count (auto) 192 10^3/uL (140-450); Potassium 3.8 mmol/L (3.5-5.1); Red Cell Distribution Width 15.3 % (11.8-14.3); Sodium 141 mmol/L (136-145)
[2024-05-24 10:42] LABS: BUN/Creatinine Ratio 8.2 (10.0-20.0); Blood Urea Nitrogen 7 mg/dL (9-23); Glucose 115 mg/dL (74-106)
--- NOTE | 2024-05-24 11:16 | DVH ---
CLINICAL INFORMATION: 74 years old, Male; torsion versus epididymitis. TECHNIQUE: Grayscale sonographic imaging of the testicles and scrotal contents was performed , michael dulce by color doppler technique. Duplex doppler ultrasound of both testicles was performed. COMPARISON: None FINDINGS: The right testicle measures 4.3 x 3.3 x 2.8 cm, within normal limits. Unremarkable echogenicity of th e right testicle. Arterial and venous blood flow demonstrated. Heterogeneous epididymis with 0.7 cm epididymal cyst. Moderate to large hydrocele. No varicocele. The left testicle measures 4.5 x 2.6 x 2.9 cm, within normal limits. Unremarkable echogenicity of the left testicle. Arterial and venous blood flow demonstrated. Heterogeneous epididymis with epididym al cyst measuring up to 0.7 cm. Small hydrocele. Varicocele noted. IMPRESSION: 1. No sonographic evidence of testicular torsion. 2. Heterogeneous appearance of both epididymides with bilateral epididymal cysts. 3. Bilateral hydroceles, right greater than left. 4. Left varicocele.
[2024-05-24] MEDS ORDERED: CEPH250C PO (11:36)
[2024-05-24 11:46] VITALS: BP 157/80; PULSE 78; TEMP 99.3
[2024-05-24 11:50] VITALS: RESP 14; O2SAT 97
== END 2024-05-24 11:49 | disposition home or self-care (01) ==
LOC: ER 08:34
DX: N43.3 Hydrocele, unspecified (principal); I25.10 Atherosclerotic heart disease of native coronary artery without angina pectoris; E11.9 Type 2 diabetes mellitus without complications; I10 Essential (primary) hypertension; E78.5 Hyperlipidemia, unspecified; Z95.1 Presence of aortocoronary bypass graft; Z79.899 Other long term (current) drug therapy; Z79.84 Long term (current) use of oral hypoglycemic drugs; Z79.82 Long term (current) use of aspirin
CPT/HCPCS: 36415; 76870; 80048; 85025